=== PATIENT | male | born 1995 | race Caucasian/White ===

== ENCOUNTER 2017-01-28 03:19 | Emergency (ER) | payer OTHER ==
[2017-01-28 06:42] LABS: microscopic required? NO
[2017-01-28 07:31] LABS: CALCIUM 8.5 mg/dL (8.5-10.1); CARBON DIOXIDE 22.6 mmol/L (21-32); CHLORIDE SERUM 107 mmol/L (98-107); GFR1 > 60 mL/min; GLUCOSE SERUM 103 mg/dL (74-106); POTASSIUM SERUM 3.8 mmol/L (3.5-5.1); SODIUM SERUM 140 mmol/L (136-145)
[2017-01-28 07:32] LABS: BASOPHIL % 0.2 % (0-2); PLATELET COUNT 246 x10^3mcL (130-400); RED CELL DISTRIBUTION WIDTH 13.2 % (11.5-14.5)
[2017-01-28 07:35] LABS: ALKALINE PHOSPHATASE 73 U/L (46-116); ALT/SGPT 72 U/L (16-63); AST/SGOT 26 U/L (15-37); BILIRUBIN TOTAL 0.2 mg/dL (0.20-1.00); LIPASE 820 IU/L (73-393); TOTAL PROTEIN, SERUM 7.6 g/dL (6.4-8.2)
[2017-01-28 07:36] LABS: ALBUMIN 3.3 g/dL (3.4-5.0)
[2017-01-28 08:10] LABS: UA SPECIFIC GRAVITY >=1.030 (1.005-1.035); urine erythrocyte NEGATIVE (NEGATIVE)
[2017-01-28 10:26] VITALS: BP 125/62
== END 2017-01-28 10:27 | disposition home or self-care (01) ==
LOC: ED 03:19
PROVIDERS: Emergency Medicine
DX: R10.9 Unspecified abdominal pain (principal); R11.10 Vomiting, unspecified; R19.7 Diarrhea, unspecified; F17.210 Nicotine dependence, cigarettes, uncomplicated
CPT/HCPCS: 83880; J2270; J2405; J2543; J3490; J7030